=== PATIENT | male | born 1950 | race Caucasian/White ===

== ENCOUNTER 2017-05-16 16:56 | Emergency (ER) | payer MEDICARE ==
[2017-05-16 16:58] VITALS: BP 157/77; PULSE 77; RESP 18; TEMP 97.8; O2SAT 98
[2017-05-16] MEDS ORDERED: PRAV10TA PO (17:17)
[2017-05-16] MEDS ORDERED: LISI2.5T3 PO (17:17)
[2017-05-16 17:24] LABS: GLUCOSE,URINE NEG (NEG); KETONE, URINE TRACE mg/dL (NEG); NITRITE,URINE NEG (NEG); PH, URINE 5.5 (5.0-8.5)
[2017-05-16 17:27] LABS: BLOOD, URINE TRACE (NEG)
[2017-05-16 17:28] LABS: METHOD OF COLLECTION VOIDED
[2017-05-16 17:29] LABS: MUCUS URINE FEW /lpf (OCC); SQUAMOUS EPITHELIAL CELL URINE 0-1 /hpf (0-5); URINE COLOR YELLOW (YELLW/STRAW); WBC, URINE 0-2 /hpf (0-5)
[2017-05-16 17:30] LABS: COMMENT (UR) CULT NOT INDICATED; CULTURE IF INDICATED CULT NOT INDICATED
[2017-05-16] MEDS ORDERED: KETOROLAC TROMETHAMINE 30 MG/ML (IVP) VIAL IVP ONE (17:30)
[2017-05-16] MEDS ORDERED: ONDANSETRON HCL 4 MG/2 ML VIAL IVP ONE (17:30)
[2017-05-16] MEDS ORDERED: SODIUM CHLORIDE 0.9% FLUSH 10 ML FLUSH IV FLUSH PRN (17:30)
[2017-05-16] MEDS ORDERED: SODIUM CHLORID 0.9% 500 ML INJ 500 ML IV ONE (17:30)
[2017-05-16 17:32] VITALS: O2SAT 96
[2017-05-16 17:36] LABS: BASOPHIL # 0.2 TH/MM3 (0-0.2); BASOPHIL % 1.8 % (0.0-2.0); EOSINOPHIL # 0.1 TH/MM3 (0-0.4); EOSINOPHIL % 0.9 % (0.0-4.0); HEMATOCRIT 45.7 % (39.0-51.0); HEMO FLAGS DIFF FINAL; LYMPH % 14.3 % (9.0-44.0); LYMPHOCYTE # 1.8 TH/MM3 (1.0-4.8); MEAN CELL VOLUME 102.1 FL (80.0-100.0); MEAN CORPUSCULAR HEMOGLOBIN 33.9 PG (27.0-34.0); MEAN CORPUSCULAR HGB CONC 33.2 % (32.0-36.0); PLATELET COUNT 185 TH/MM3 (150-450); RED BLOOD COUNT 4.48 MIL/MM3 (4.50-5.90); RED CELL DISTRIBUTION WIDTH 12.6 % (11.6-17.2); WHITE BLOOD COUNT 12.9 TH/MM3 (4.0-11.0)
[2017-05-16 17:46] LABS: CHLORIDE 105 MEQ/L (98-107); POTASSIUM 3.7 MEQ/L (3.5-5.1); SODIUM (NA) 141 MEQ/L (136-145)
[2017-05-16 17:50] LABS: ANION GAP 8 MEQ/L (5-15); BICARBONATE 28.1 MEQ/L (21.0-32.0); BLOOD UREA NITROGEN 23 MG/DL (7-18)
[2017-05-16 17:53] LABS: ALT (GPT) 47 U/L (12-78); AST (GOT) 25 U/L (15-37); GLOMERULAR FILTRATION RATE 67 ML/MIN (>89)
[2017-05-16 17:55] LABS: TOTAL BILIRUBIN ADULT 0.4 MG/DL (0.2-1.0)
[2017-05-16 17:56] LABS: ALKALINE PHOSPHATASE 39 U/L (45-117)
[2017-05-16] MEDS ORDERED: ZOFR4TAB PO (18:36)
[2017-05-16] MEDS ORDERED: TRAM50 PO (18:36)
[2017-05-16] MEDS ORDERED: IBUP-232 PO (18:36)
[2017-05-16] MEDS ORDERED: TAMS5CAP PO (18:36)
--- NOTE | 2017-05-16 18:36 | PD ---
HPI Chief Complaint: Flank/Kidney Pain Time Seen by Provider: 17:07 Travel History International Travel<30 days: No Contact w/Intl Traveler<30days: No Traveled to known affect area: No History of Present Illness HPI Patient is a 66-year-old male presents emergency Department with right flank pain. Patient states is never happened him before, started 2 hours prior to arrival sudden in onset, colicky, associated with some minimal burning in urination but no blood seen in the urine. Mild nausea without vomiting no diarrhea patient blood in stool. No fevers. Symptoms are severe, right flank, radiating to his right abdomen associated with nausea. PFSH Past Medical History Cancer: Yes (PROSTATE) High Cholesterol: Yes Hypertension: Yes Tetanus Vaccination: > 5 Years Influenza Vaccination: Yes Past Surgical History Abdominal Surgery: Yes (COLON RESCETION) Tonsillectomy: Yes Social History Alcohol Use: Yes (3 OZ DAILY) Tobacco Use: Yes (1 PPD) Substance Use: No Allergies-Medications (Allergen,Severity, Reaction): Coded Allergies: No Known Allergies (Verified Allergy, Unknown, 05/16/17) Reported Meds & Prescriptions Reported Meds & Active Scripts Active Flomax (Tamsulosin HCl) 0.4 Mg Cap 0.4 Mg PO HS Zofran (Ondansetron HCl) 4 Mg Tab 4 Mg PO Q6HR PRN Ultram (Tramadol HCl) 50 Mg Tab 50 Mg PO Q6H PRN Ibuprofen 600 Mg Tab 600 Mg PO Q6H PRN Reported Pravastatin 10 Mg Tab Unknown Dose PO DAILY Lisinopril 2.5 Mg Tab Unknown Dose PO DAILY Review of Systems Except as stated in HPI: all other systems reviewed are Neg Physical Exam Narrative GENERAL: Well-developed well-nourished uncomfortable appearance SKIN: Focused skin assessment warm/dry. HEAD: Atraumatic. Normocephalic. EYES: Pupils equal and round. No scleral icterus. No injection or drainage. ENT: No nasal bleeding or discharge. Mucous membranes pink and moist. NECK: Trachea midline. No JVD. CARDIOVASCULAR: Regular rate and rhythm. No murmur appreciated. RESPIRATORY: No accessory muscle use. Clear to auscultation. Breath sounds equal bilaterally. GASTROINTESTINAL: Abdomen soft, non-tender, nondistended. Hepatic and splenic margins not palpable. Positive CVA tenderness on the right, no rebound no percussive tenderness, no guarding. MUSCULOSKELETAL: No obvious deformities. No clubbing. No cyanosis. No edema. NEUROLOGICAL: Awake and alert. No obvious cranial nerve deficits. Motor grossly within normal limits. Normal speech. PSYCHIATRIC: Appropriate mood and affect; insight and judgment normal. Data Data Last Documented VS Vital Signs Date Time Temp Pulse Resp B/P (MAP) Pulse Ox O2 Delivery O2 Flow Rate FiO2 05/16/17 18:51 05/16/17 18:43 79 16 94 Room Air 05/16/17 16:58 97.8 Orders Orders Urinalysis - C+S If Indicated (05/16/17 17:07) Complete Blood Count With Diff (05/16/17 17:23) Comprehensive Metabolic Panel (05/16/17 17:23) Iv Access Insert/Monitor (05/16/17 17:23) Ecg Monitoring (05/16/17 17:23) Oximetry (05/16/17 17:23) Ondansetron Inj (Zofran Inj) (05/16/17 17:30) Sodium Chloride 0.9% Flush (Ns Flush) (05/16/17 17:30) Ketorolac Inj (Toradol Inj) (05/16/17 17:30) Ct Abd/Pel W/O Iv Contrast (05/16/17 ) Sodium Chlorid 0.9% 500 Ml Inj (Ns 500 M (05/16/17 17:30) Ed Discharge Order (05/16/17 18:41) Labs Laboratory Tests Test 05/16/17 17:15 05/16/17 17:30 Urine Collection Type VOIDED Urine Color YELLOW Urine Turbidity CLEAR Urine pH 5.5 Urine Specific Fletcher 1.026 Urine Protein TRACE mg/dL Urine Glucose (UA) NEG mg/dL Urine Ketones TRACE mg/dL Urine Occult Blood TRACE Urine Nitrite NEG Urine Bilirubin NEG Urine Leukocyte Esterase NEG Urine WBC 0-2 /hpf Urine Squamous Epithelial Cells 0-1 /hpf Urine Mucus FEW /lpf Microscopic Urinalysis Comment CULT NOT INDICATED White Blood Count 12.9 TH/MM3 Red Blood Count 4.48 MIL/MM3 Hemoglobin 15.2 GM/DL Hematocrit 45.7 % Mean Corpuscular Volume 102.1 FL Mean Corpuscular Hemoglobin 33.9 PG Mean Corpuscular Hemoglobin Concent 33.2 % Red Cell Distribution Width 12.6 % Platelet Count 185 TH/MM3 Mean Platelet Volume 9.0 FL Neutrophils (%) (Auto) 77.0 % Lymphocytes (%) (Auto) 14.3 % Monocytes (%) (Auto) 6.0 % Eosinophils (%) (Auto) 0.9 % Basophils (%) (Auto) 1.8 % Neutrophils # (Auto) 10.0 TH/MM3 Lymphocytes # (Auto) 1.8 TH/MM3 Monocytes # (Auto) 0.8 TH/MM3 Eosinophils # (Auto) 0.1 TH/MM3 Basophils # (Auto) 0.2 TH/MM3 CBC Comment DIFF FINAL Differential Comment Blood Urea Nitrogen 23 MG/DL Creatinine 1.10 MG/DL Random Glucose 133 MG/DL Total Protein 7.6 GM/DL Albumin 4.0 GM/DL Calcium Level 9.6 MG/DL Alkaline Phosphatase 39 U/L Aspartate Amino Transf (AST/SGOT) 25 U/L Alanine Aminotransferase (ALT/SGPT) 47 U/L Total Bilirubin 0.4 MG/DL Sodium Level 141 MEQ/L Potassium Level 3.7 MEQ/L Chloride Level 105 MEQ/L Carbon Dioxide Level 28.1 MEQ/L Anion Gap 8 MEQ/L Estimat Glomerular Filtration Rate 67 ML/MIN MDM Medical Decision Making Medical Screen Exam Complete: Yes Emergency Medical Condition: Yes Differential Diagnosis Renal colic, kidney stone, UTI, acute kidney injury, cholecystitis, pancreatitis. Narrative Course Vision roomed in emergency department, symptoms highly suggestive of renal colic and kidney stones. CAT scan confirms small kidney stone. He is feeling much better after Toradol stable for discharge. Discussed symptomatically management follow-up with the urologist. Last 24 hours Impressions Abdomen/Pelvis CT 05/16/17 0000 Signed Impressions: Service Date/Time: Tuesday, May 16, 2017 18:11 - CONCLUSION: 1. 3 mm left UVJ calcified calculus with resultant mild to moderate left hydroureteronephrosis. 2. Nonobstructing 5 mm inferior pole right calyceal calculus. 3. Additional ancillary findings include post surgical features of prior right hemicolectomy and moderate sigmoid diverticulosis. Stephan Cerda MD Diagnosis Primary Impression: Nephrolithiasis Additional Impression: Left flank pain Referrals: Domenic Antonio MD Patient Instructions: General Instructions, Kidney Stones (DC) Additional Instructions: Call your urologist on thursday to make an appointment or call Dr. Antonio's office if you need a new urologist. Med/Other Pt SpecificInfo: Prescription(s) given Scripts Tamsulosin (Flomax) 0.4 Mg Cap 0.4 MG PO HS for Manage Prostate Problems, #30 CAP 0 Refills Prov: Dorian Young MD 05/16/17 Ondansetron (Zofran) 4 Mg Tab 4 MG PO Q6HR Y for NAUSEA OR VOMITING, #20 TAB 0 Refills Prov: Dorian Young MD 05/16/17 Tramadol (Ultram) 50 Mg Tab 50 MG PO Q6H Y for PAIN SCALE 8 TO 10, #15 TAB 0 Refills Prov: Dorian Young MD 05/16/17 Ibuprofen (Ibuprofen) 600 Mg Tab 600 MG PO Q6H Y for PAIN, #30 TAB 0 Refills Prov: Dorian Young MD 05/16/17 Disposition: 01 DISCHARGE HOME Condition: Stable Dorian Young MD May 16, 2017 18:36
--- NOTE | 2017-05-16 18:37 | RADRPT ---
EXAM DATE/TIME: 05/16/2017 18:11 [facility] COMPARISON: No previous studies available for comparison. INDICATIONS : Left flank pain. ORAL CONTRAST: No oral contrast ingested. RADIATION DOSE: 25.42 CTDIvol (mGy) ; Patient body habitus MEDICAL HISTORY : Carcinoma, prostate. Hypertension. SURGICAL HISTORY : Colon resection. ENCOUNTER: Initial ACUITY: 1 day PAIN SCALE: 7/10 LOCATION: Left flank TECHNIQUE: Volumetric scanning of the abdomen and pelvis was performed. Using automated exposure control and ad justment of the mA and/or kV according to patient size, radiation dose was kept as low as reasonably achievable to obtain optimal diagnostic quality images. DICOM format image data is available electro nically for review and comparison. FINDINGS: LOWER LUNGS: The visualized lower lungs are clear. LIVER: Homogeneous density without lesion. There is no dilation of the biliary tree. No calcified gallston es. SPLEEN: Normal size without lesion. PANCREAS: Within normal limits. KIDNEYS: There is a 3 mm left UVJ calcified calculus with resultant mild to moderate left hydroureteronephrosi s. 5 mm calcified calculus in the inferior pole of the right kidney. Right kidney is otherwise unrema rkable without hydronephrosis. No contour deforming renal abnormalities. ADRENAL GLANDS: Mild adreniform enlargement of the left adrenal gland. VASCULAR: There is no aortic aneurysm. BOWEL/MESENTERY: The stomach, small bowel, and colon demonstrate no acute abnormality. Moderate sigmoid diverticulosi s without significant inflammatory change to suggest diverticulitis. Postsurgical features of prior r ight colectomy. There is no free intraperitoneal air or fluid. ABDOMINAL WALL: Within normal limits. RETROPERITONEUM: There is no lymphadenopathy. BLADDER: No wall thickening or mass. REPRODUCTIVE: Presumed small radiation beads in the prostate. INGUINAL: There is no lymphadenopathy or hernia. MUSCULOSKELETAL: Right femoral intramedullary hossein. No lytic or blastic bony lesions. CONCLUSION: 1. 3 mm left UVJ calcified calculus with resultant mild to moderate left hydroureteronephrosis. 2. Nonobstructing 5 mm inferior pole right calyceal calculus. 3. Additional ancillary findings include post surgical features of prior right hemicolectomy and mode rate sigmoid diverticulosis. Stephan Cerda MD on May 16, 2017 at 18:27 Board Certified Radiologist. This report was verified electronically.
[2017-05-16 18:43] VITALS: BP 106/60; PULSE 79; RESP 16; O2SAT 94
== END 2017-05-16 18:52 | disposition home or self-care (01) ==
LOC: PHED 16:56
DX: N13.2 Hydronephrosis with renal and ureteral calculous obstruction (principal); K57.30 Diverticulosis of large intestine without perforation or abscess without bleeding; E78.00 Pure hypercholesterolemia, unspecified; I10 Essential (primary) hypertension; F17.200 Nicotine dependence, unspecified, uncomplicated
CPT/HCPCS: 74176; 80053; 81001; 85025; 96361; 96374; 96375; 99285; J1885; J2405; J7040